=== PATIENT | male | born 1950 | race Caucasian/White ===

== ENCOUNTER 2024-04-06 00:33 | Day surgery (SDC) | payer MEDICARE, OTHER, SELFPAY ==
[2024-03-22 12:55] VITALS: BMI 27.3
[2024-04-06 08:30] VITALS: BP 129/98; PULSE 98; RESP 18; TEMP 36.2; O2SAT 98
[2024-04-06] MEDS: LACTATED RINGERS 1,000 ML 150 ML IV CONT (08:37)
--- NOTE | 2024-04-06 08:39 | P.PNAN_ITS ---
Anes - Initial Pre Proc Eval Procedure: Operation Date: 04/06/24 10:00 Proposed Procedures p Screening Colonoscopy - Jonathan Wood MD Date/Time: 04/06/24 08:40 Surgeon: Jonathan Wood MD Pre Op Diagnosis: neoplasm screening Patient Data Age: 73 Gender: M Height: 1.78 m Weight: 87.9 kg Last Vital Signs Temp 97.2 F L 04/06/24 08:30 Pulse 98 04/06/24 08:30 Resp 18 04/06/24 08:30 BP 129/98 H 04/06/24 08:30 Pulse Ox 98 04/06/24 08:30 O2 Del Method Room Air 04/06/24 08:30 Allergies Allergy/AdvReac Type Severity Reaction Status Date / Time No Known Allergies Allergy Unverified 04/06/24 08:28 Home Medications Medication Instructions Recorded Confirmed Type Adults Multivitamin 1 tab-cap PO DAILY 03/22/24 03/22/24 History carvedilol 6.25 mg tablet 6.25 mg PO BID 03/22/24 04/06/24 History cetirizine 10 mg tablet 10 mg PO DAILY 03/22/24 03/22/24 History coQ10 (ubiquinol) 1 tab-cap PO DAILY 03/22/24 03/22/24 History eszopiclone 3 mg tablet 3 mg PO HS PRN Insomnia 03/22/24 03/22/24 History hydrochlorothiazide 25 mg tablet 25 mg PO DAILY 03/22/24 03/22/24 History lansoprazole 30 mg capsule,delayed 30 mg PO DAILY 03/22/24 03/22/24 History release naproxen 500 mg tablet 500 mg PO BID 03/22/24 03/22/24 History olmesartan 40 mg tablet 40 mg PO DAILY 03/22/24 03/22/24 History rosuvastatin 10 mg tablet 10 mg PO DAILY 03/22/24 04/06/24 History Patient hx anesthesia problems: none Family hx anesthesia problems: none Results Review: All pre-operative results and documents have been reviewed as part of the pre- operative evaluation. ON LICENSE OF [facility] Social History Social History Smoking status: Never smoker Alcohol intake: current Drinks per week: 4 Alcohol use details: DRINKS Substance use: never Substance use type: does not use Living arrangements: with family Spiritual care concerns: No Anes - Eval Final PreProcedure Day of Procedure 04/06/24 08:40 Patient weight: normal Heart: regular rate and rhythm Lungs: clear to auscultation Airway: Mallampati scale class II Neurological: alert and oriented Last oral intake: >/= 8 hours ASA classification: II Emergent: no Anesthetic plan: proceed Anesthesia type and monitoring: general GIVS and standard monitoring Results Review: All pre-operative results and documents have been reviewed as part of the pre- operative evaluation. Informed Consent: The patient's anesthetic plan and its attendant risks and benefits were discussed with the patient/family/POA. Questions were solicited and answers provided to the satisfaction of the patient/family/POA.
--- NOTE | 2024-04-06 09:17 | PM.HPGS ---
History of Present Illness History of Present Illness Consent: Risks, benefits, and alternatives have been discussed and questions answered. Patient agrees to proceed with procedure. Chief complaint: neoplasm screening Narrative: Lee Rivero is a 73 year old male here to screening colonoscopy, last one 10 years ago Review of Systems Review of Systems: All systems reviewed & are unremarkable except as noted in HPI and below PMFSH Past Medical History Medical History (Updated 04/06/24 @ 09:18 by Jonathan Wood MD) Colon cancer screening Social History Social History Smoking status: Never smoker Alcohol intake: current Drinks per week: 4 Alcohol use details: DRINKS Substance use: never Substance use type: does not use Living arrangements: with family Spiritual care concerns: No Meds Home Medications and Allergies Home Medications Medication Instructions Recorded Confirmed Type Adults Multivitamin 1 tab-cap PO DAILY 03/22/24 03/22/24 History carvedilol 6.25 mg tablet 6.25 mg PO BID 03/22/24 04/06/24 History cetirizine 10 mg tablet 10 mg PO DAILY 03/22/24 03/22/24 History coQ10 (ubiquinol) 1 tab-cap PO DAILY 03/22/24 03/22/24 History eszopiclone 3 mg tablet 3 mg PO HS PRN Insomnia 03/22/24 03/22/24 History hydrochlorothiazide 25 mg tablet 25 mg PO DAILY 03/22/24 03/22/24 History lansoprazole 30 mg capsule,delayed 30 mg PO DAILY 03/22/24 03/22/24 History release naproxen 500 mg tablet 500 mg PO BID 03/22/24 03/22/24 History olmesartan 40 mg tablet 40 mg PO DAILY 03/22/24 03/22/24 History rosuvastatin 10 mg tablet 10 mg PO DAILY 03/22/24 04/06/24 History Allergies Allergy/AdvReac Type Severity Reaction Status Date / Time No Known Allergies Allergy Unverified 04/06/24 08:28 Vital Signs Vital Signs - 24 hr 04/06/24 08:30 Temperature 97.2 F L Pulse Rate 98 Respiratory Rate 18 Blood Pressure 129/98 H Pulse Oximetry 98 Oxygen Delivery Room Air Exam Const: General: comfortable and no acute distress HENMT: Face/Nose/Sinus: Normal nares present Eyes: General: appearance normal, both eyes and all related structures Neck: Neck: no JVD Resp: Auscultation: clear to auscultation bilaterally Cardio: Rate: regular rate Rhythm: regular rhythm GI: Inspection: non-distended GI Palp: Yes Soft to palpation Skin: General skin exam: normal color Neuro: General: gait normal Speech: normal speech Extrem: General: normal to inspection Psych: Mental Status: mental status grossly normal Assessment and Plan Assessment and plan (1) Colon cancer screening: Code(s): Z12.11 - Encounter for screening for malignant neoplasm of colon Status: Acute Assessment and Plan: colonoscopy
[2024-04-06 09:28] VITALS: BP 132/113; PULSE 76; RESP 15; O2SAT 93
[2024-04-06 09:38] VITALS: BP 101/72; PULSE 79; RESP 20; O2SAT 97
[2024-04-06 09:48] VITALS: BP 123/80; PULSE 71; RESP 18; O2SAT 97
== END 2024-04-06 09:58 | disposition home or self-care (01) ==
PROVIDERS: Visit Provider Internal Medicine Gastroenterology
PROC: 0DJD8ZZ Inspection of Lower Intestinal Tract, Via Natural or Artificial Opening Endoscopic (ICD-10-PCS; CPT 45378; principal; 2024-04-06 10:00)
DX: Z12.11 Encounter for screening for malignant neoplasm of colon (principal); K57.30 Diverticulosis of large intestine without perforation or abscess without bleeding; K64.8 Other hemorrhoids
CPT/HCPCS: G0121; J2704; J7120